=== PATIENT | female | born 1970 | race Caucasian/White ===

== ENCOUNTER 2020-08-30 08:42 | Emergency (ER) | payer OTHER, SELFPAY ==
--- NOTE | ~2020-08-30 | XR_ITS ---
EXAMINATION: XR hand LT min 3V DATE: 08/30/2020 09:14 INDICATION: Left hand pain. TECHNIQUE: 3 views of left hand were obtained. COMPARISON: None. FINDINGS: Bone alignment is normal. No fracture. There is mild osteoarthritis of first carpometacarpa l joint and first metacarpophalangeal joint. IMPRESSION: 1. Mild polyarticular osteoarthritis. Reviewed, dictated and finalized at location B.
[2020-08-30 09:01] VITALS: BP 141/82; PULSE 74; RESP 16; TEMP 36.7; O2SAT 99
--- NOTE | 2020-08-30 09:08 | ED.UPPEXIN ---
HPI - Extremity Injury (Upper) General Chief Complaint: Extremity Injury, Upper Stated Complaint: LT HAND PAIN Time Seen by Provider: 08/30/20 08:45 Source: patient Mode of arrival: ambulatory Limitations: no limitations History of Present Illness HPI narrative: 49-year-old female presents to [facility] with complaints of pain to the palm of her left hand for the past week. Patient reports that she was walking when she tripped in a hole and landed on her left hand. Patient has been applying ice and taking [id number] ibuprofen with minimal relief. Patient reports that she did have a large bruise to the area which has since resolved. Patient denies numbness, tingling, erythema or swelling. MD complaint: injury to: left and hand Onset (ago): week(s) (1) Other injuries: none Place: outdoors Relieving factors: none Exacerbating factors: movement of extremity Associated symptoms: denies other symptoms Treatments prior to arrival: cold therapy Related Data Home Medications Medication Instructions Recorded Confirmed acetaminophen-codeine 1 tablet PO BID 08/30/20 08/30/20 alprazolam [Xanax] 0.25 mg PO BID 08/30/20 08/30/20 levonorgestrel [Mirena] 1 device INTRAUTERINE ONCE 08/30/20 08/30/20 zolpidem [Ambien] 10 mg PO HS 08/30/20 08/30/20 Allergies Allergy/AdvReac Type Severity Reaction Status Date / Time No Known Drug Allergies Allergy Unknown Verified 08/30/20 09:06 Review of Systems Constitutional: Constitutional: Denies chills, Denies fatigue, Denies fever(s) and Denies weakness Cardiovascular: Cardiovascular: Denies chest pain Respiratory: Respiratory: Denies chest congestion, Denies cough, Denies dyspnea and Denies wheezing Gastrointestinal: Gastrointestinal: Denies abdominal pain, Denies diarrhea, Denies nausea and Denies vomiting Musculoskeletal: Comments: pain to palm of left hand Neurologic: Denies dizziness and Denies syncope [facility] Past Medical History Medical History (Updated 08/30/20 @ 09:25 by Effie Velez APRN) delivery delivered Cholecystectomy planned Hernia Surgical History Surgical History Gastric bypass status for obesity H/O spinal fusion Social History Social History (Updated 08/30/20 @ 09:12 by Effie Velez APRN) Smoking status: Never smoker Gender identity (if verbalized by the patient): Female Comments At time of signature, I agree with nursing past medical, surgical, social and family history. There is no relevant family history pertinent to the presenting complaint. Exam Const: General: no acute distress and alert Nutritional Appearance: well nourished Orientation/consciousness: patient oriented x3 Neck: Neck: normal visual inspection Resp: Effort & Inspection: normal respiratory effort, not labored and not tachypneic Auscultation: clear to auscultation bilaterally, no rales, no rhonchi and no wheezes Cardio: Rate: regular rate, not bradycardic and not tachycardic Rhythm: regular rhythm Heart sounds: no murmurs Skin: General skin exam: normal color and no jaundice Rashes: no rashes Wounds: no wounds Neuro: General: patient oriented x3, moves all extremities, no meningeal signs and no focal motor deficits Extrem: General: normal to inspection, no clubbing, cyanosis or edema, no pedal edema and no edema Other: Mild pain noted to palm of left hand upon palpation. There is no bruising, swelling, erythema or open wounds noted. Full range of motion mpted. Pulses are within normal limits Course Course Emergency Course: Cameron wrap applied to left hand per nursing staff. Patient agrees to continue [id number] Tylenol as needed. Patient agrees to apply cool compress to area of pain as needed. Patient agrees to follow-up with orthopedics if symptoms not improved. Patient agrees to wear Cameron wrap for brace to her left hand as needed. Patient agrees to avoid NSAID use as she does have a hi
== END 2020-08-30 09:29 | disposition home or self-care (01) ==
PROVIDERS: Emergency Provider Nurse Practitioner Family; PCP General Practice
DX: M79.642 Pain in left hand (principal)
CPT/HCPCS: 73130; 99213; G0463